=== PATIENT | male | born 1960 | race Caucasian/White ===

== ENCOUNTER 2019-03-14 15:28 | Inpatient (IN) | payer MEDICAID ==
[~2019-03-14] VITALS: Ht 177.8 cm; Wt 77.1 kg
[2019-03-14] MEDS ORDERED: NACL 0.9% 500 ML IV SCH (15:43)
[2019-03-14] MEDS ORDERED: FAMOTIDINE 20 MG/2 ML VIAL IVP ONE (15:45)
[2019-03-14 16:05] VITALS: BP 113/76
--- NOTE | 2019-03-14 16:05 | NUR ---
PT IN WHEELCHAIR TO ER BED 04
--- NOTE | 2019-03-14 16:10 | NUR ---
58/M bib family sent by Dr. Burgos's office with c/o hemorrhoids and decreased appetite x2 weeks. PATIENT STATES PAIN OF 10/10 AT THIS TIME. PATIENT POSITIONED FOR COMFORT; HOB ELEVATED; BEDRAILS UP X1; BED DOWN. ER MD MADE AWARE OF PT STATUS.
[2019-03-14] MEDS ORDERED: DOCU-299 PO (16:15)
[2019-03-14] MEDS ORDERED: CIPR250T6 PO (16:15)
[2019-03-14] MEDS ORDERED: ACET-787 PO (16:15)
[2019-03-14] MEDS ORDERED: METR250T2 PO (16:15)
[2019-03-14 16:28] LABS: BASOPHILS # (AUTO) 0.1 K/uL (0.00-0.22); BASOPHILS % (AUTO) 0.5 % (0.0-2.0); EOSINOPHILS # (AUTO) 0.1 K/uL (0-0.4); EOSINOPHILS % (AUTO) 0.6 % (0.0-4.0); HEMATOCRIT 25.6 % (36-52); HEMOGLOBIN 7.5 g/dL (12.0-18.0); LYMPHOCYTES # (AUTO) 1.5 K/uL (2.0-11.5); LYMPHOCYTES % (AUTO) 10.4 % (20.5-51.1); MEAN CORPUSCULAR HEMOGLOBIN 18 pg (27-31); MEAN CORPUSCULAR HGB CONC 29 g/dL (33-37); MEAN CORPUSCULAR VOLUME 62.6 fL (80-94); MONOCYTES # (AUTO) 0.7 K/uL (0.8-1.0); NEUTROPHILS # (AUTO) 12.2 K/uL (1.8-7.7); NEUTROPHILS % (AUTO) 83.5 % (42.2-75.2); PLATELET COUNT (AUTO) 617 K/uL (140-450); RED BLOOD CELL COUNT(AUTO) 4.09 MIL/uL (4.20-6.10); RED CELL DISTRIBUTION WIDTH 19.5 % (11.6-13.7); WHITE BLOOD COUNT (AUTO) 14.6 K/uL (4.8-10.8)
[2019-03-14 16:45] LABS: CARBON DIOXIDE 28.3 mmol/L (21-32); CREATININE 1.1 mg/dL (0.7-1.3); POTASSIUM 3.3 mmol/L (3.5-5.1)
[2019-03-14 16:51] LABS: PROTHROMBIN TIME 13.5 secs (10.8-13.4)
[2019-03-14 16:54] LABS: ALBUMIN 2.3 g/dL (3.4-5.0); TOTAL BILIRUBIN 0.6 mg/dL (0.0-1.0)
--- NOTE | 2019-03-14 16:57 | NUR ---
PT CAN'T PROVIDE URINE AT THIS TIME.
[2019-03-14 17:00] LABS: MAGNESIUM 2.4 mg/dL (1.8-2.4)
[2019-03-14] MEDS ORDERED: ONDANSETRON 4 MG/2 ML VIAL IVP PRN (17:05)
--- NOTE | 2019-03-14 18:05 | NUR ---
Patient will be admitted to care of DR العلي. Admited to MS. Will go to room 104B. Belongings list completed. Report to
--- NOTE | 2019-03-14 18:10 | NUR ---
RECEIVED PT FROM ED NURSE. PT IS AWAKE AND ALERT, ON 2L O2 NC FOR SOB. IN NO ACUTE DISTRESS. SKIN IS INTACT. IV SITE L AC 20. MRSA NARES SWAB TAKEN. VS UPON ADMIT: BP 130/72, HR 95, O2 95%, TEMP 100.2, RR 18. CALL LIGHT GIVEN WITHIN REACH
[2019-03-14 18:24] LABS: APPEARANCE,URINE CLEAR (CLEAR); BILIRUBIN,URINE 1+ (NEGATIVE); BLOOD, URINE TRACE-I (NEGATIVE); LEUKOCYTE ESTERASE ,URINE NEGATIVE (NEGATIVE); NITRITE, URINE POSITIVE (NEGATIVE); PH,URINE 5.5 (5.0-9.0); UGLUCOSE TRACE (NEGATIVE)
--- NOTE | 2019-03-14 18:29 | NUR ---
PAGED DR CORADO FOR MED ORDERS. PT'S HBG IS 7.5, AND POTASSIUM IS 3.3. ALSO PT HAS A LOW-GRADE FEVER OF 100.2. WAITING FOR DR CORADO'S CALL BACK. Addendum: 03/14/19 at 1853 by Radha Faye RN DR CORADO CALLED BACK AND SAID TO CALL DR العلي. WILL CALL DR العلي FOR ORDERS
[2019-03-14 18:32] LABS: COLOR,URINE AMBER (YELLOW)
[2019-03-14 18:34] LABS: BARBITURATE, URINE NEG. ng/ml (NEG <=200); BENZODIAZEPINE, URINE NEG. ng/mL (NEG <=200); CANNABINOID, URINE NEG. ng/mL (NEG <=50); COCAINE, URINE NEG. ng/mL (NEG <=300); OPIATE, URINE POS. ng/mL (NEG <=2000)
[2019-03-14] MEDS: MORPHINE SULFATE 2 MG/ML SYR IVP PRN (18:34)
[2019-03-14 18:47] LABS: RBC,URINE NONE SEEN /HPF (0-5); WBC,URINE 0-5 /HPF (0-5)
--- NOTE | 2019-03-14 18:53 | NUR ---
CALLED DR العلي TO REPORT POTASSIUM IS 3.3, HGB 7.5, TEMP 100.2, AND PT CURRENTLY DOES NOT HAVE IV FLUID ORDERS. DR العلي TORB 40 MEQ POTASSIUM PO ONCE, CBC AND BMP IN THE AM (NO BLOOD TRANSFUSION ORDER), D5 1/2 NS 75 ML/HR, AND 500 MG TYLENOL PRN FOR FEVER GREATER THAN 101.
[2019-03-14] MEDS ORDERED: ACETAMINOPHEN 325 MG TAB PO PRN (18:55)
[2019-03-14 19:17] LABS: PHENCYCLIDINE SCREEN,URINE POS. ng/mL (NEG <=25)
--- NOTE | 2019-03-14 19:20 | NUR ---
ENDORSED PT TO RESIDENCE LIFE COORDINATOR NURSE IN STABLE CONDITION
--- NOTE | 2019-03-14 19:21 | NUR ---
RECEIVED BEDSIDE REPORT FROM DAY SHIFT NURSE, CHAO. NO SOB NOTED. BREATHING EVEN AND UNLABORED. SKIN INTACT, WARM AND DRY TO TOUCH. IV SITE ON L AC20G, WILL HANG D51/2NS AT 75ML/HR MD ORDERED. BOARD UPDATED, ALL SAFETY MEASUREMENT ARE MET. BED IN LOW POSITION, CALL LIGHT WITHIN REACH.
[2019-03-14] MEDS: DEXT 5% / NACL 0.45% 1,000 ML IV SCH (19:50)
[2019-03-14 20:00] VITALS: BP 130/72
[2019-03-14] MEDS ORDERED: POTASSIUM CHLORIDE 10 MEQ TABER PO ONE (20:00)
--- NOTE | 2019-03-14 21:40 | NUR ---
HANG FLUID AND GIVEN K DUR MD ORDERED. PT TOLERATE WELL. EDUCATED PT WILL BE UNDER NPO AFTER MIDNIGHT. PT VERBALIZED UNDERSTANDING.
[2019-03-15] VITALS: BP 123/71
[2019-03-15] MEDS: MORPHINE SULFATE 2 MG/ML SYR IVP PRN ×2 (00:03→05:21)
--- NOTE | 2019-03-15 00:03 | NUR ---
VS CHECKED, PT C/O 10/10 PAIN ON RECTUM. GIVEN MORPHINE MD ORDERED. PT TOLERATED WELL.
--- NOTE | 2019-03-15 02:22 | NUR ---
PT SLEEPING IN BED COMFORTABLY. NO ACUTE DISTRESS NOTED.
--- NOTE | 2019-03-15 04:30 | NUR ---
PT SLEEPING IN BED COMFORTABLY. NO ACUTE DISTRESS NOTED.
--- NOTE | 2019-03-15 05:21 | NUR ---
PT C/O 10/10 RECTUM PAIN, GIVEN MORPHINE MD ORDERED. PT TOLERATED WELL.
--- NOTE | 2019-03-15 06:38 | NUR ---
PT SLEEPING IN BED COMFORTABLY. NO ACUTE DISTRESS NOTED. WILL ENDORSE PT TO DAY SHIFT NURSE.
--- NOTE | 2019-03-15 07:15 | NUR ---
RECEIVED REPORT FROM [employer] SUPERVISOR NURSE JUANPABLO FOR CONTINUITY OF CARE. PT IN STABLE CONDITION. RESPIRATIONS EVEN AND UNLABORED. IV INTACT AND PATENT. SAFETY MEASURES IN PLACE. BED IN LOW POSITION. CALL LIGHT AT BEDSIDE. BED ALARM ON. WILL CONTINUE TO MONITOR.
[2019-03-15] MEDS ORDERED: GELATIN SPONGE 100 1 SPG TP ONE (07:27)
[2019-03-15 07:36] LABS: ANION GAP 12.6 (8-16); CARBON DIOXIDE 27.4 mmol/L (21-32)
[2019-03-15 08:00] VITALS: BP 126/72
[2019-03-15] MEDS: DEXT 5% / NACL 0.45% 1,000 ML IV SCH ×2 (08:15→21:35)
--- NOTE | 2019-03-15 08:38 | NUR ---
PATIENT HAS BEEN SCREENED AND CATEGORIZED LOW NUTRITION RISK. PATIENT WILL BE SEEN WITHIN 7 DAYS OF ADMISSION. 03/21/[address]
--- NOTE | 2019-03-15 08:50 | NUR ---
DR. العلي, OLLIE 40MEQ KDUR, 10 MEQ PER HOUR ONCE.
[2019-03-15] MEDS: KCL 20 MEQ/WATER INJ PREMIX 100 ML IV SCH ×2 (09:30→12:24)
--- NOTE | 2019-03-15 09:44 | NUR ---
GAVE ORDERED DUE MEDICATIONS AT THIS TIME. PT TOLERATED WELL. WILL CONTINUE TO MONITOR.
[2019-03-15 09:53] LABS: RED BLOOD CELL COUNT(AUTO) 3.26 MIL/uL (4.20-6.10); WHITE BLOOD COUNT (AUTO) 12.1 K/uL (4.8-10.8)
[2019-03-15 09:54] LABS: EOSINOPHILS % (AUTO) 1.7 % (0.0-4.0); HEMATOCRIT 20.5 % (36-52); LYMPHOCYTES % (AUTO) 11.8 % (20.5-51.1); MEAN CORPUSCULAR HEMOGLOBIN 18 pg (27-31); MEAN CORPUSCULAR HGB CONC 29 g/dL (33-37); MEAN CORPUSCULAR VOLUME 62.7 fL (80-94); MONOCYTES % (AUTO) 4.1 % (1.7-9.3); NEUTROPHILS % (AUTO) 81.9 % (42.2-75.2); PLATELET COUNT (AUTO) 511 K/uL (140-450); RED CELL DISTRIBUTION WIDTH 19.7 % (11.6-13.7)
[2019-03-15 09:55] LABS: BASOPHILS # (AUTO) 0.1 K/uL (0.00-0.22); BASOPHILS % (AUTO) 0.5 % (0.0-2.0); EOSINOPHILS # (AUTO) 0.2 K/uL (0-0.4); LYMPHOCYTES # (AUTO) 1.4 K/uL (2.0-11.5); MONOCYTES # (AUTO) 0.5 K/uL (0.8-1.0); NEUTROPHILS # (AUTO) 9.9 K/uL (1.8-7.7)
--- NOTE | 2019-03-15 11:01 | NUR ---
CONSENT FOR BLOOD TRANSFUSION SIGNED AT THIS TIME. PT IN STABLE CONDITION.
--- NOTE | 2019-03-15 12:10 | NUR ---
STARTED TRANSFUSING 1 OF 2 UNITS OF BLOOD. PT TOLERATED WELL. WILL CONTINUE TO MONITOR.
[2019-03-15] MEDS: HYDROcodone/APAP 5/325 MG 1 TAB TAB PO PRN ×2 (12:44→20:26)
--- NOTE | 2019-03-15 15:15 | NUR ---
CARDIO PULM AT BEDSIDE PERFORMING ECHO AT THIS TIME. PT IN STABLE CONDITION.
[2019-03-15 16:00] VITALS: BP 122/70
--- NOTE | 2019-03-15 16:30 | NUR ---
COMPLETED TRANSFUSING 1 OF 2 UNITS BLOOD. PT IN STABLE CONDITION.
--- NOTE | 2019-03-15 17:15 | NUR ---
MANNY العلي, OLLIE PLACE PT NPO AFTER MIDNIGHT. ORDER SOFT LOW FIBER DIET.
--- NOTE | 2019-03-15 19:31 | NUR ---
GAVE REPORT TO TELEVISION AUDIO ENGINEER NURSE KELSEY FOR CONTINUITY OF CARE. PT IN STABLE CONDITION.
--- NOTE | 2019-03-15 19:32 | NUR ---
RECEIVED FROM AM RN IN BED SITTING UP AND TALKING WITH VISITORS. CARE PLANS FOR THE NIGHT DISCUSSED WITH HIM. CALL LIGHT WITH IN REACH. ROM X 4. CLEAR SPEECH. REMINDED TO BE NPO MN FOR PROCEDURE PLANNED TOMORROW. "OK" IVF SITE TO LAC # 20. WILL TRANSFUSE 1 MORE UNIT OF PRBC ORDERED.
[2019-03-15 20:26] VITALS: BP 130/72
--- NOTE | 2019-03-15 21:05 | NUR ---
PRBC #2 UNIT STARTED. PT. AWAKE AND ALERT. NO SOB. ON 02 AT 2LPM/NC. AT BEDSIDE. NO COMPLAINTS DONE AT THIS TIME. NEW IVF SITE INSERTED TO LEFT FOREARM #20 RT OLD IVF SITE LEAKING. TOLERATED WELL.
--- NOTE | 2019-03-15 22:00 | NUR ---
NO COMPLAINTS DONE. PT. SEEN WALKING TO RESTROOM WITH ASSISTING HIM. ROM X 4. CLEAR SPEECH. ABLE TO SPEAK IN [place]. NO ADVERSE REACTIONS NOTED TO BLOOD TRANSFUSION.
--- NOTE | 2019-03-15 23:26 | NUR ---
NO ADVERSE REACTIONS TO # 2 UNIT OF PRBC BEING TRANSFUSED. ABLE TO VERBALIZE NEEDS WELL IN [place].
[2019-03-16] MEDS: LEVOFLOXACIN 750 MG/D5W PREMIX 150 ML IV SCH ×2 (00:18→22:00)
--- NOTE | 2019-03-16 00:25 | NUR ---
BLOOD TRANSFUSION DONE. NO COMPLAINTS OF ANY ITCHINESS. AFEBRILE. GOOD AFFECT. AT BEDSIDE.
[2019-03-16] MEDS: metroNIDAZOLE 500 MG/NS PREMIX 100 ML IV SCH ×3 (02:13→15:06)
[2019-03-16] MEDS: HYDROcodone/APAP 5/325 MG 1 TAB TAB PO PRN (02:19)
[2019-03-16 02:20] VITALS: BP 127/76
--- NOTE | 2019-03-16 02:25 | NUR ---
P.O. PAIN RELIEVER NORCO ADMINISTERED RT PT. STATED THAT HE IS IN PAIN WITH HIS RECTUM AGAIN. MEDICATED REQUESTED. A/O X 4. NO NOTED ADVERSE REACTION TO IV ABT LEVAQUIN ADMINISTERED.
[2019-03-16 02:57] LABS: BASOPHILS % (AUTO) 0.3 % (0.0-2.0); EOSINOPHILS # (AUTO) 0.2 K/uL (0-0.4); EOSINOPHILS % (AUTO) 2.3 % (0.0-4.0); HEMATOCRIT 24.6 % (36-52); LYMPHOCYTES # (AUTO) 1.4 K/uL (2.0-11.5); LYMPHOCYTES % (AUTO) 14.4 % (20.5-51.1); MEAN CORPUSCULAR HEMOGLOBIN 21 pg (27-31); MEAN CORPUSCULAR HGB CONC 31 g/dL (33-37); MONOCYTES # (AUTO) 0.4 K/uL (0.8-1.0); MONOCYTES % (AUTO) 4.5 % (1.7-9.3); NEUTROPHILS # (AUTO) 7.7 K/uL (1.8-7.7); NEUTROPHILS % (AUTO) 78.5 % (42.2-75.2); RED BLOOD CELL COUNT(AUTO) 3.55 MIL/uL (4.20-6.10); WHITE BLOOD COUNT (AUTO) 9.8 K/uL (4.8-10.8)
[2019-03-16 03:19] LABS: HEMOGLOBIN 7.6 g/dL (12.0-18.0)
[2019-03-16 03:20] LABS: MEAN CORPUSCULAR VOLUME 69.3 fL (80-94); PLATELET COUNT (AUTO) 465 K/uL (140-450); RED CELL DISTRIBUTION WIDTH 28.2 % (11.6-13.7)
--- NOTE | 2019-03-16 06:12 | NUR ---
SLEPT WELL POST P.O. PAIN RELIEVER. NO COMPLAINTS AFTER. ABLE TO AMBULATE WELL. AT BEDSIDE. WILL ENDORSE TO AM RN FOR CONTINUITY OF CARE.
[2019-03-16 07:36] LABS: ANION GAP 14.7 (8-16); CREATININE 0.9 mg/dL (0.7-1.3); POTASSIUM 3.7 mmol/L (3.5-5.1)
[2019-03-16 08:00] VITALS: BP 158/72
[2019-03-16] MEDS ORDERED: MORPHINE SULFATE 2 MG/ML SYR IVP PRN (08:00)
[2019-03-16] MEDS ORDERED: GELATIN SPONGE 100 1 SPG TP ONE (10:31)
[2019-03-16] MEDS ORDERED: BUPIVACAINE-MPF/EPI 0.25% 30 ML VIAL INJ ONE (10:31)
[2019-03-16] MEDS ORDERED: LIDOCAINE 2% 100 MG/5 ML UJET TP ONE (10:32)
[2019-03-16 11:10] VITALS: BP 142/85
[2019-03-16] MEDS ORDERED: LIDOCAINE 1% 500 MG/50 ML VIAL ONE (11:33)
[2019-03-16] MEDS ORDERED: HYDROmorphone 1 MG/ML AMP ONE (11:44)
[2019-03-16] MEDS ORDERED: fentaNYL 0.05 MG/ML VIAL ONE (11:44)
[2019-03-16] MEDS ORDERED: HYDROmorphone PFS 2 MG/ML SYR ONE (12:09)
[2019-03-16 14:10] VITALS: BP 140/84
[2019-03-16 16:00] VITALS: BP 140/86
--- NOTE | 2019-03-16 18:20 | NUR ---
Patient discharged to [facility], and report endorsed earlier to the receiving nurse. Gave report to [employer] cdl truck driver. Marshall Lopez RN
--- NOTE | 2019-03-16 19:15 | NUR ---
RECEIVED REPORT FROM AM SHIFT NURSE. PATIENT ALERT AND ORIENTED X4. NO APPARENT DISTRESS NOTED. DENIES PAIN NOR DISCOMFORT. WITH IV ON LEFT FOREARM 20G RUNNING IVF. REVIEWED CURRENT PLAN OF CARE. VERBALIZED UNDERSTANDING WILL CONTINUE TO MONITOR.
--- NOTE | 2019-03-16 20:15 | NUR ---
RECEIVED CALL FROM DR. DREW TO STRAIGHT CATH PATIENT EVERY 6 HOURS IF NO VOID AND IF BLADDER SCAN IS GREATER THAN 400ML. UPON CHECKING, PATIENT ALREADY VOIDED. WILL CONTINUE TO MONITOR.
--- NOTE | 2019-03-16 22:10 | NUR ---
PATIENT ASLEEP IN BED. NO APPARENT DISTRESS NOTED. VISIBLE CHEST RISE AND FALL NOTED. WILL CONTINUE TO MONITOR.
[2019-03-17] VITALS: BP 135/89
--- NOTE | 2019-03-17 | NUR ---
PATIENT AWAKE IN BED. NO APPARENT DISTRESS NOTED. DENIES PAIN NOR DISCOMFORT AT THIS TIME. WILL CONTINUE TO MONITOR.
[2019-03-17] MEDS: DEXT 5% / NACL 0.45% 1,000 ML IV SCH ×2 (00:15→01:50)
[2019-03-17] MEDS: metroNIDAZOLE 500 MG/NS PREMIX 100 ML IV SCH ×2 (00:37→06:12)
[2019-03-17] MEDS: HYDROcodone/APAP 5/325 MG 1 TAB TAB PO PRN (00:47)
--- NOTE | 2019-03-17 00:47 | NUR ---
PATIENT WITH COMPLAINT OF 6/10 PAIN. MEDICATED WITH NORCO. WILL CONTINUE TO MONITOR.
[2019-03-17] MEDS: HYDROmorphone 1 MG/ML AMP IVP PRN ×2 (01:44→08:37)
--- NOTE | 2019-03-17 01:44 | NUR ---
PATIENT VERBALIZED THAT PAIN HAS GOTTEN WORSE. MEDICATED WITH DILAUDID. WILL RE-ASSESS.
--- NOTE | 2019-03-17 03:40 | NUR ---
PATIENT ASLEEP IN BED. NO APPARENT DISTRESS NOTED. VISIBLE CHEST RISE AND FALL NOTED. WILL CONTINUE TO MONITOR.
--- NOTE | 2019-03-17 05:35 | NUR ---
PATIENT ASLEEP IN BED. NO APPARENT DISTRESS NOTED. VISIBLE CHEST RISE AND FALL NOTED. WILL CONTINUE TO MONITOR.
[2019-03-17 07:11] LABS: BASOPHILS % (AUTO) 0.2 % (0.0-2.0); HEMATOCRIT 24.9 % (36-52); HEMOGLOBIN 7.5 g/dL (12.0-18.0); LYMPHOCYTES # (AUTO) 1.3 K/uL (2.0-11.5); LYMPHOCYTES % (AUTO) 12.9 % (20.5-51.1); MEAN CORPUSCULAR HEMOGLOBIN 22 pg (27-31); MEAN CORPUSCULAR HGB CONC 30 g/dL (33-37); MEAN CORPUSCULAR VOLUME 71.5 fL (80-94); MONOCYTES # (AUTO) 0.5 K/uL (0.8-1.0); MONOCYTES % (AUTO) 5.3 % (1.7-9.3); NEUTROPHILS % (AUTO) 81.6 % (42.2-75.2); PLATELET COUNT (AUTO) 516 K/uL (140-450); RED BLOOD CELL COUNT(AUTO) 3.48 MIL/uL (4.20-6.10); WHITE BLOOD COUNT (AUTO) 9.8 K/uL (4.8-10.8)
--- NOTE | 2019-03-17 07:25 | NUR ---
ENDORSED TO AM SHIFT NURSE FOR CONTINUITY OF CARE.
[2019-03-17 07:36] LABS: ANION GAP 11.9 (8-16); CARBON DIOXIDE 26.5 mmol/L (21-32); CREATININE 0.8 mg/dL (0.7-1.3); POTASSIUM 4.4 mmol/L (3.5-5.1)
[2019-03-17 07:44] LABS: MAGNESIUM 2.2 mg/dL (1.8-2.4); PHOSPHORUS 2.1 mg/dL (2.5-4.9)
[2019-03-17 08:00] VITALS: BP 128/74
--- NOTE | 2019-03-17 08:00 | NUR ---
Patient awake and alert, oriented x 4. Patient ready to eat breakfast. Heparin drip @ 1050 units per hour 10.5 ml per hour. Marshall Lopez RN
[2019-03-17] MEDS ORDERED: ACETAMINOPHEN EXTRA STRENGTH 500 MG TAB PO PRN (08:27)
[2019-03-17] MEDS ORDERED: oxyCODONE/APAP 5/325 MG 1 TAB TAB PO PRN (08:55)
[2019-03-17] MEDS ORDERED: DOCUSATE SODIUM 100 MG GELCAP PO SCH (09:00)
--- NOTE | 2019-03-17 11:40 | NUR ---
Patient resting quietly in bed with at bedside. Insulin drip rate changed to 1180 units per hour per protocol, see emar-bolus given. Marshall Lopez RN
[2019-03-17 12:00] VITALS: BP 132/76
[2019-03-17 15:47] VITALS: BP 124/74
[2019-03-17] MEDS ORDERED: INFLUENZA VACCINE QUAD 0.5 ML SYR IMVAC PRN (15:50)
[2019-03-17 16:00] VITALS: BP 134/78
[2019-03-17] MEDS ORDERED: HYDR-5122 PO (16:37)
--- NOTE | 2019-03-17 17:03 | NUR ---
PT ALERT AND ORIENTED. APPEARS RELAXED RESTING IN BED. DISCHARGE INSTRUCTIONS PROVIDED. VERBALIZED UNDERSTANDING. PRESCRIPTION PROVIDED TO PATIENT. VERBALIZED UNDERSTANDING OF MAKING APPOINTMENT WITH DR. LEVIN IN 3-4 WEEKS. OPPORTUNITY PROVIDED TO ASK QUESTION AND ANSWERED. PT SIGNED DISCHARGE PAPERS. BELONGINGS WITH PATIENT AND FAMILY.
--- NOTE | 2019-03-17 17:54 | NUR ---
NO ADR NOTED TO FLU SHOT. PT'S IV CANNULA REMOVED. NO BLEEDING NOTED FROM THE SITE. SECURED WITH DRESSING. ID BAND REMOVED. EXCUSE LETTER FOR WORK PROVIDED TO . AT THE BEDSIDE.
--- NOTE | 2019-03-17 18:30 | NUR ---
Patient received his Influenza vaccine prior to being discharged, he received discharge instructions, and gives verbal acknowledgement of understanding information received. Patient escorted to vehicle from lobby, and leaves safely with at side. Marshall Lopez RN
== END 2019-03-17 18:30 | disposition home or self-care (01) | DRG 226 ==
LOC: MED 15:28 → MTU 17:06
PROVIDERS: ADMIT Surgery; ATTEND Surgery
PROC: 30233N1 Transfusion of Nonautologous Red Blood Cells into Peripheral Vein, Percutaneous Approach (ICD-10-PCS; principal; 2019-03-15)
PROC: 06BY0ZC Excision of Hemorrhoidal Plexus, Open Approach (ICD-10-PCS; 2019-03-16)
PROC: 3E02340 Introduction of Influenza Vaccine into Muscle, Percutaneous Approach (ICD-10-PCS; 2019-03-17)
DX: K64.3 Fourth degree hemorrhoids (principal); E43 Unspecified severe protein-calorie malnutrition; D68.9 Coagulation defect, unspecified; D50.9 Iron deficiency anemia, unspecified; N39.0 Urinary tract infection, site not specified; E87.6 Hypokalemia; D72.829 Elevated white blood cell count, unspecified; E87.8 Other disorders of electrolyte and fluid balance, not elsewhere classified; R74.0 Nonspecific elevation of levels of transaminase and lactic acid dehydrogenase [LDH]; Z68.24 Body mass index [BMI] 24.0-24.9, adult; Z79.899 Other long term (current) drug therapy; Z23 Encounter for immunization
CPT/HCPCS: 36415; 71045; 76705; 80048; 80053; 80305; 81001; 83735; 84100; 84484; 85025; 85610; 85730; 86886; 86900; 86901; 86920; 87040; 87081; 88304; 93005; 96361; 96374; 99285; G0482; J0696; J1170; J1956; J2001; J2270; J3010; J3480; J3490; J7030; J7060; P9016; Q0092